=== PATIENT | male | born 1975 | race Hispanic/Latino ===

== ENCOUNTER 2017-01-05 23:50 | Emergency (ER) | payer MEDICAID ==
[2017-01-05 23:50] VITALS: BMI 33.0
--- NOTE | 2017-01-06 00:15 | ED PDOC ---
Arrival/HPI - General Historian: Patient - History of Present Illness Time/Duration: Other (today) Symptom Onset: Gradual Symptom Course: Worsening <Rossy Stephenson - Last Filed: 01/06/17 01:30> <Edwar Jeffries - Last Filed: 01/06/17 05:59> - General Chief Complaint: Psychiatric Evaluation Time Seen by Provider: 01/05/17 23:51 - History of Present Illness Narrative History of Present Illness (Text): 01/06/17 00:09 41yr old male with hx of bipolar, copd, asthma presents today hearing voices with SI. pt states he will take pills to hurt himself. denies cp or sob. no abdominal pain. no dizziness or weakness. c/o 1 week hx of rash to lateral chest bilaterally. c/o pruritis. no fever/chills. denies drug use. no other complaints. (Rossy Stephenson) Past Medical History - Provider Review Nursing Documentation Reviewed: Yes - Travel History Have you recently traveled outside [place] w/in the past 3 mons?: No - Infectious Disease Hx of Infectious Diseases: None - Past Medical History Past Medical History: No Previous - Cardiac Hx Hypertension: Yes - Pulmonary Hx Asthma: Yes Hx Chronic Obstructive Pulmonary Disease (COPD): Yes Hx Tuberculosis: No - Neurological Hx Neurological Disorder: No HX Cerebrovascular Accident: No - HEENT Hx HEENT Disorder: Yes Other/Comment: wears glasses for blurring of vision - Renal Hx Renal Disorder: No - Endocrine/Metabolic Hx Endocrine Disorders: No - Hematological/Oncological Hx Blood Disorders: No Hx Cancer: No - Integumentary Hx Dermatological Disorder: Yes Other/Comment: I&D to axillary cysts. Lipoma - Musculoskeletal/Rheumatological Hx Arthritis: Yes - Gastrointestinal Hx Gastrointestinal Disorders: No - Genitourinary/Gynecological Hx Genitourinary Disorders: No Hx Sexually Transmitted Diseases: No - Psychiatric Hx Anxiety: Yes Hx Bipolar Disorder: Yes Hx Depression: Yes Hx Schizophrenia: Yes Hx Substance Use: No - Past Surgical History Past Surgical History: No Previous - Surgical History Other/Comment: had boils removed from his under arms 2010. local anesthesia - Anesthesia Hx Anesthesia: No - Suicidal Assessment Feels Threatened In Home Enviroment: No <Rossy Stephenson - Last Filed: 01/06/17 01:30> Family/Social History - Physician Review Nursing Documentation Reviewed: Yes Family/Social History: Unknown Family HX Smoking Status: Heavy Smoker > 10 Cigarettes Daily Hx Alcohol Use: No Hx Substance Use: No Substance used: marijuana Hx Substance Use Treatment: No <Rossy Stephenson - Last Filed: 01/06/17 01:30> Allergies/Home Meds <SachinRossy T - Last Filed: 01/06/17 01:30> <Edwar Jeffries - Last Filed: 01/06/17 05:59> Allergies/Adverse Reactions: Allergies shellfish derived Allergy (Verified 01/06/17 00:01) RASH Home Medications: Home Meds Medication Instructions Recorded Confirmed traZODone [trazodone Hydrochloride] 100 mg PO DAILY 12/30/16 01/06/17 Benztropine [Benztropine Mesylate] 2 mg PO DAILY 01/06/17 01/06/17 Escitalopram [Lexapro] 5 mg PO CONT 01/06/17 01/06/17 Gabapentin [Neurontin] 300 mg PO DAILY 01/06/17 01/06/17 LORazepam [Ativan] 2 mg PO PRN PRN 01/06/17 01/06/17 Quetiapine Fumarate [Seroquel] 300 mg PO HS 01/06/17 01/06/17 Review of Systems - Review of Systems Constitutional: absent: Fatigue, Fevers Respiratory: absent: SOB, Cough Cardiovascular: absent: Chest Pain, Palpitations Gastrointestinal: absent: Abdominal Pain, Nausea, Vomiting Genitourinary Male: absent: Dysuria Musculoskeletal: absent: Arthralgias Skin: Rash, Pruritis Neurological: absent: Headache, Dizziness Psychiatric: Depression, Suicidal Ideation. absent: Anxiety <Rossy Stephenson - Last Filed: 01/06/17 01:30> Physical Exam Vital Signs Reviewed: Yes Temperature: Afebrile Blood Pressure: Normal Pulse: Regular Respiratory Rate: Normal Appearance: Positive for: Well-Appearing, Non-Toxic, Comfortable Pain Distress: None Mental Status: Positive for: Alert and Oriented X 3 - Systems Exam Head: Present: Atraumatic Neck: Present: Normal Range of Motion Respiratory/Chest: Present: Clear to Auscultation, Good Air Exchange. No: Respiratory Distress, Accessory Muscle Use Cardiovascular: Present: Regular Rate and Rhythm, Normal S1, S2. No: Murmurs Abdomen: No: Tenderness, Distention, Rebound, Guarding Back: Present: Normal Inspection. No: Midline Tenderness, Paraspinal Tenderness Upper Extremity: Present: Normal ROM Lower Extremity: Present: Normal ROM Neurological: Present: GCS=15, Speech Normal Skin: Present: Warm, Dry, Rashes (multiple pinpoint erythematous papules noted to lateral chest wall bilaterally; no surrounding erythema; ), Normal Color Psychiatric: Present: Alert, Oriented x 3, Depressed Mood, Suicidal Ideation <Rossy Stephenson - Last Filed: 01/06/17 01:30> Vital Signs Temp Pulse Resp BP Pulse Ox 01/06/17 05:33 97.6 F 86 18 115/60 95 01/06/17 01:30 90 18 100 01/06/17 00:14 98.5 F 119 H 20 130/73 97 Medical Decision Making <Rossy Stephenson - Last Filed: 01/06/17 01:30> <Edwar Jeffries - Last Filed: 01/06/17 05:59> ED Course and Treatment: 01/06/17 00:26 Patient is nontoxic well-appearing in no distress vital signs are stable. CBC wnl CMP wnl Tylenol pending Salicylate pending Alcohol level pending cxr; wnl ekg; NSr at 94 b/m no st elevations, normal intervals, no st elevations. Urine drug screen: pending UA:wnl case signed out to dr. jeffries; pending labs/UDS and PES evaluation. (Rossy Stephenson) 01/06/17 02:28 Pt seen by PES screener Cristina, states she will re-evaluate pt in the morning when he is sober. cleared by pes for dc 01/06/17 05:59 (Edwar Jeffries) - Lab Interpretations Lab Results: 01/06/17 00:40 01/06/17 00:40 Lab Results 01/06/17 01:15: Urine Opiates Screen Negative, Urine Methadone Screen Negative, Ur Barbiturates Screen Negative, Ur Phencyclidine Scrn Negative, Ur Amphetamines Screen Negative, U Benzodiazepines Scrn Negative, U Oth Cocaine Metabols Negative, U Cannabinoids Screen Negative 01/06/17 01:15: Urine Color Yellow, Urine Appearance Clear, Urine pH 6.0, Ur Specific [place] 1.025, Urine Protein Negative, Urine Glucose (UA) Negative, Urine Ketones Negative, Urine Blood Negative, Urine Nitrate Negative, Urine Bilirubin Negative, Urine Urobilinogen 0.2, Ur Leukocyte Esterase Negative 01/06/17 00:40: Alcohol, Quantitative 185 H 01/06/17 00:40: Salicylates < 1 L, Acetaminophen < 10.0 L 01/06/17 00:40: Sodium 145, Potassium 3.0 L, Chloride 107, Carbon Dioxide 25, Anion Gap 16, BUN 12, Creatinine 0.8, Est GFR ( Amer) > 60, Est GFR (Non- Af Amer) > 60, Random Glucose 122 H, Calcium 8.8, Total Bilirubin 0.6, AST 23, ALT 42, Alkaline Phosphatase 45, Total Protein 7.1, Albumin 4.4, Globulin 2.7, Albumin/Globulin Ratio 1.6 01/06/17 00:40: WBC 9.1, RBC 4.68, Hgb 14.8, Hct 42.9, MCV 91.7, MCH 31.6, MCHC 34.5, RDW 13.9, Plt Count 264, MPV 9.0, Gran % 49.6 L, Lymph % (Auto) 38.3 H, [place] % (Auto) 7.4 H, Eos % (Auto) 4.0, Baso % (Auto) 0.7, Gran # 4.52, Lymph # 3.5 H, [place] # 0.7 H, Eos # 0.4, Baso # 0.06 - RAD Interpretation Radiology Orders: 01/06/17 00:07 CHEST PORTABLE [RAD] Stat - Medication Orders Current Medication Orders: Discontinued Medications Potassium Chloride (K-Dur 20 Meq Er Tab) 40 meq PO STAT STA Stop: 01/06/17 01:39 Last Admin: 01/06/17 01:54 Dose: 40 meq - PA / GUSSET STITCHER / Resident Statement / has reviewed & agrees with the documentation as recorded. / has examined the patient and agrees with the treatment plan. <Edwar Jeffries - Last Filed: 01/06/17 05:59> Disposition/Present on Arrival - Present on Arrival Any Indicators Present on Arrival: No History of DVT/PE: No History of Uncontrolled Diabetes: No Urinary Catheter: No History of Decub. Ulcer: No History Surgical Site Infection Following: None <Rossy Stephenson - Last Filed: 01/06/17 01:30> - Present on Arrival Any Indicators Present on Arrival: No - Disposition Have Diagnosis and Disposition been Completed?: Yes Disposition Time: 07:00 <Edwar Jeffries - Last Filed: 01/06/17 05:59> - Disposition Diagnosis: Bipolar 1 disorder Disposition: HOME/ ROUTINE Patient Problems: Current Active Problems Problem Status Onset Bipolar 1 disorder Acute Condition: GOOD Prescriptions: Gabapentin 600 mg PO TID 14 Days #42 tablet Escitalopram [Lexapro] 10 mg PO DAILY #14 tab Quetiapine Fumarate [Seroquel] 100 mg PO BID 14 Days #28 tablet QUEtiapine [SEROquel] 300 mg PO HS #14 tab Forms: [employer] ([place])
[2017-01-06 00:51] LABS: BASO # 0.06 K/mm3 (0.0-2.0); BASO % 0.7 % (0.0-3.0); EOS # 0.4 (0.0-0.7); GRAN # 4.52 (1.4-6.5); GRAN % 49.6 % (50.0-68.0); HEMATOCRIT 42.9 % (42.0-52.0); LYMPH # 3.5 (1.2-3.4); LYMPH % 38.3 % (22.0-35.0); MEAN CELL VOLUME 91.7 fl (80.0-105.0); MEAN CORPUSCULAR HEMOGLOBIN 31.6 pg (25.0-35.0); MEAN CORPUSCULAR HGB CONC 34.5 g/dl (31.0-37.0); MONO # 0.7 (0.1-0.6); MONO % 7.4 % (1.0-6.0); RED CELL DISTRIBUTION WIDTH 13.9 % (11.5-14.5); WHITE BLOOD COUNT 9.1 10^3/ul (4.5-11.0)
[2017-01-06 01:04] LABS: ALB/GLOB RATIO 1.6 (1.1-1.8); ALKALINE PHOSPHATASE 45 U/L (38-126); ALT/SGPT 42 U/L (7-56); AST/SGOT 23 U/L (17-59); BILIRUBIN,TOTAL 0.6 mg/dL (0.2-1.3); BLOOD UREA NITROGEN 12 mg/dL (7-21); CALCIUM 8.8 mg/dL (8.4-10.5); CARBON DIOXIDE 25 mmol/L (21-33); CHLORIDE 107 mmol/L (95-110); GFR AFRICAN-AMERICAN > 60; GLUCOSE,RANDOM 122 mg/dL (70-110); SODIUM 145 mmol/L (132-148); TOTAL PROTEIN 7.1 g/dL (5.8-8.3)
[2017-01-06 01:21] LABS: URINE BILIRUBIN NEGATIVE (NEGATIVE); URINE BLOOD NEGATIVE (NEGATIVE); URINE COLOR YELLOW (YELLOW); URINE GLUCOSE (UA) NEGATIVE (NEGATIVE); URINE KETONE NEGATIVE (NEGATIVE); URINE LEUKOCYTE ESTERASE NEGATIVE Leu/uL (NEGATIVE); URINE PROTEIN NEGATIVE mg/dL (<30 mg/dL); URINE UROBILINOGEN 0.2 E.U./dL (<1 E.U./dL)
[2017-01-06 01:22] LABS: URINE APPEARANCE CLEAR (CLEAR)
[2017-01-06 01:31] VITALS: RESP 18
[2017-01-06] MEDS ORDERED: Potassium Chloride 20 mEq ER Tab PO STA (01:38)
[2017-01-06 05:37] VITALS: BP 115/60; PULSE 86; TEMP 97.6; O2SAT 95
--- NOTE | 2017-01-06 08:48 | RAD ---
HISTORY: PES eval COMPARISON: No prior. FINDINGS: LUNGS: No active pulmonary disease. PLEURA: No significant pleural effusion identified, no pneumothorax apparent. CARDIOVASCULAR: Normal. OSSEOUS STRUCTURES: No significant abnormalities. VISUALIZED UPPER ABDOMEN: Normal. OTHER FINDINGS: None. IMPRESSION: No active disease.
--- NOTE | 2017-01-06 09:16 | CARD ---
APPROVED REPORT EKG Measurement Heart [id number] [place] [id number] <Conclusion> Normal sinus rhythm Normal ECG
== END 2017-01-06 05:55 | disposition home or self-care (01) ==
LOC: ED 23:50
DX: F31.9 Bipolar disorder, unspecified (principal); F17.210 Nicotine dependence, cigarettes, uncomplicated; J44.9 Chronic obstructive pulmonary disease, unspecified; I10 Essential (primary) hypertension

== ENCOUNTER 2017-05-02 15:06 | Emergency (ER) | payer MEDICAID ==
[2017-05-02 15:07] VITALS: BMI 33.0
--- NOTE | 2017-05-02 16:21 | RAD ---
HISTORY: pes COMPARISON: Thin made with chest radiograph 01/06/2017. FINDINGS: LUNGS: No active pulmonary disease. PLEURA: No significant pleural effusion identified, no pneumothorax apparent. CARDIOVASCULAR: Normal. OSSEOUS STRUCTURES: No significant abnormalities. VISUALIZED UPPER ABDOMEN: Normal. OTHER FINDINGS: None. IMPRESSION: No active disease.
[2017-05-02 16:43] VITALS: RESP 18
[2017-05-02 16:49] LABS: URINE BILIRUBIN NEGATIVE (NEGATIVE); URINE BLOOD NEGATIVE (NEGATIVE); URINE GLUCOSE (UA) NEGATIVE (NEGATIVE); URINE LEUKOCYTE ESTERASE NEGATIVE Leu/uL (NEGATIVE); URINE NITRATE NEGATIVE (NEGATIVE); URINE PROTEIN NEGATIVE mg/dL (<30 mg/dL); URINE UROBILINOGEN 0.2 E.U./dL (<1 E.U./dL)
[2017-05-02 16:52] LABS: URINE APPEARANCE CLEAR (CLEAR); URINE COLOR YELLOW (YELLOW)
[2017-05-02 16:57] LABS: ALB/GLOB RATIO 1.5 (1.1-1.8); ALBUMIN 4.7 g/dL (3.0-4.8); ALT/SGPT 39 U/L (7-56); AST/SGOT 35 U/L (17-59); BLOOD UREA NITROGEN 14 mg/dL (7-21); CALCIUM 9.9 mg/dL (8.4-10.5); GFR AFRICAN-AMERICAN > 60; GFR NON-AFRICAN AMERICAN > 60
[2017-05-02 16:59] LABS: ACETAMINOPHEN < 10.0 ug/ml (10.0-20.0); SALICYLATE < 1 mg/dL (2.0-20.0)
[2017-05-02 17:00] LABS: BASO # 0.08 K/mm3 (0.0-2.0); BASO % 0.7 % (0.0-3.0); EOS # 0.3 (0.0-0.7); EOS % 2.8 % (1.5-5.0); GRAN # 6.85 (1.4-6.5); GRAN % 62.7 % (50.0-68.0); HEMOGLOBIN 15.7 g/dL (14.0-18.0); LYMPH # 2.9 (1.2-3.4); LYMPH % 26.7 % (22.0-35.0); MEAN CELL VOLUME 91.5 fl (80.0-105.0); MEAN CORPUSCULAR HEMOGLOBIN 31.6 pg (25.0-35.0); MEAN CORPUSCULAR HGB CONC 34.5 g/dl (31.0-37.0); MEAN PLATELET VOLUME 9.6 fl (7.0-11.0); MONO # 0.8 (0.1-0.6); MONO % 7.1 % (1.0-6.0); RBC 4.97 10^6/uL (3.5-6.1); RED CELL DISTRIBUTION WIDTH 13.1 % (11.5-14.5); WHITE BLOOD COUNT 10.9 10^3/ul (4.5-11.0)
[2017-05-02 17:08] LABS: BARBITURATES, UR NEGATIVE (NEGATIVE); BENZODIAZEPINES, UR NEGATIVE (NEGATIVE); OPIATES, UR NEGATIVE (NEGATIVE); PHENCYCLIDINE, UR NEGATIVE (NEGATIVE)
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
[2017-05-03 01:43] VITALS: O2SAT 97
[2017-05-03 03:51] VITALS: BP 130/85; PULSE 86; TEMP 97.8
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
--- NOTE | 2017-05-03 09:58 | CARD ---
APPROVED REPORT EKG Measurement Heart [id number] [place] [id number] <Conclusion> Normal sinus rhythm Mild NSSTW changes No change
== END 2017-05-03 03:50 | disposition short-term general hospital (02) ==
LOC: ED 15:06
DX: R45.851 Suicidal ideations (principal); F32.9 Major depressive disorder, single episode, unspecified; Z87.891 Personal history of nicotine dependence

== ENCOUNTER 2017-08-11 19:02 | Inpatient (IN) | payer MEDICAID, OTHER ==
[2017-08-11 19:03] VITALS: BMI 33.0
--- NOTE | 2017-08-11 19:44 | ED PDOC ---
Arrival/HPI <Jaguar Rick - Last Filed: 08/12/17 05:28> - General Historian: Patient - History of Present Illness Time/Duration: Prior to Arrival Symptom Onset: Gradual Symptom Course: Worsening Quality: Aching Severity Level: 8 Activities at Onset: Rest <Cuong Bryant - Last Filed: 08/12/17 05:48> - General Chief Complaint: Psychiatric Evaluation Time Seen by Provider: 08/11/17 19:15 - History of Present Illness Narrative History of Present Illness (Text): 08/11/17 19:43 Patient is a 42 M with a history of COPD, depression, Bipolar disorder, anxiety , and pancreatitis who presents with complaints of depression associated with suicidal ideation as well as abdominal pain described as sharp, rated a 8/10, which is constant and exacerbated with movement which began this morning. Patient also endorsed 3 episodes of vomiting which occurred this morning with the abdominal pain. Admits to consuming 1-2 pints of vodka today. Patient denies current nausea, vomiting, diarrhea, shortness of breath, chest pain, headaches, dizziness, fevers, chills, recent travel, cough. PMD: Denies Surgical history: axillary cyst removal Family history: Hypertension Allergies: shellfish Social history: Currently homeless, gets alcohol from friends does not pay for it, drinks 1-2 pints of vodka a day sometimes more (Cuong Bryant) Past Medical History - Provider Review Nursing Documentation Reviewed: Yes - Infectious Disease Hx of Infectious Diseases: None - Tetanus Immunization Tetanus Immunization: Unknown - Past Medical History Past Medical History: No Previous - Cardiac Hx Cardiac Disorders: No Hx Hypertension: No - Pulmonary Hx Respiratory Disorders: Yes Hx Asthma: Yes Hx Chronic Obstructive Pulmonary Disease (COPD): Yes - Neurological HX Cerebrovascular Accident: No Hx Seizures: No - HEENT Hx HEENT Disorder: Yes Other/Comment: wears glasses - Renal Hx Renal Disorder: No - Endocrine/Metabolic Hx Endocrine Disorders: No - Hematological/Oncological Hx Blood Disorders: No Hx Cancer: No - Integumentary Hx Dermatological Disorder: Yes Other/Comment: I&D to axillary cysts. Lipoma - Musculoskeletal/Rheumatological Hx Musculoskeletal Disorders: Yes Hx Arthritis: Yes - Gastrointestinal Hx Gastrointestinal Disorders: Yes Hx Pancreatitis: Yes - Genitourinary/Gynecological Hx Genitourinary Disorders: No - Psychiatric Hx Psychophysiologic Disorder: Yes Hx Anxiety: Yes Hx Bipolar Disorder: Yes Hx Depression: Yes Hx Schizophrenia: Yes Hx Substance Use: Yes - Past Surgical History Past Surgical History: No Previous - Surgical History Other/Comment: had boils removed from his under arms 2010. local anesthesia - Anesthesia Hx Anesthesia: No Hx Anesthesia Reactions: No Hx Malignant Hyperthermia: No - Suicidal Assessment Feels Threatened In Home Enviroment: No <Cuong Bryant - Last Filed: 08/12/17 05:48> Family/Social History - Physician Review Nursing Documentation Reviewed: Yes Family/Social History: Hypertension Smoking Status: Light Smoker < 10 Cigarettes Daily Hx Alcohol Use: Yes Hx Substance Use: Yes Substance used: marijuana Hx Substance Use Treatment: No <Cuong Bryant - Last Filed: 08/12/17 05:48> Allergies/Home Meds <Jaguar Rick - Last Filed: 08/12/17 05:28> <Cuong Bryant - Last Filed: 08/12/17 05:48> Allergies/Adverse Reactions: Allergies shellfish derived Allergy (Verified 08/11/17 19:19) ANAPHYLAXIS Home Medications: Home Meds Medication Instructions Recorded Confirmed No Known Home Med 08/11/17 08/11/17 Review of Systems - Physician Review All systems were reviewed & negative as marked: Yes - Review of Systems Constitutional: Normal. absent: Fatigue, Fevers Eyes: absent: Vision Changes Respiratory: Normal. absent: SOB, Cough Cardiovascular: Normal. absent: Chest Pain, Palpitations Gastrointestinal: Abdominal Pain. absent: Nausea, Vomiting Genitourinary Male: Normal Musculoskeletal: Normal Neurological: Normal. absent: Headache, Dizziness Endocrine: Normal Hemo/Lymphatic: Normal Psychiatric: Anxiety, Depression, Suicidal Ideation <Cuong Bryant - Last Filed: 08/12/17 05:48> Physical Exam Vital Signs Reviewed: Yes Temperature: Afebrile Blood Pressure: Normal Pulse: Regular Respiratory Rate: Normal Appearance: Positive for: Well-Appearing, Non-Toxic, Comfortable Pain Distress: None Mental Status: Positive for: Alert and Oriented X 3 - Systems Exam Head: Present: Atraumatic, Normocephalic Pupils: Present: PERRL Extroacular Muscles: Present: EOMI Conjunctiva: Present: Normal Mouth: Present: Moist Mucous Membranes Respiratory/Chest: Present: Clear to Auscultation. No: Wheezes, Rhonchi Cardiovascular: Present: Regular Rate and Rhythm, Tachycardic Abdomen: Present: Tenderness. No: Normal Bowel Sounds (decreasd) Back: Present: Other (two lipo mas on right scapular region and right mid thoracic ) Lower Extremity: Present: Normal Inspection, Other (lipoma on right thigh on dorsal surface) Neurological: Present: GCS=15, CN II-XII Intact, Speech Normal Skin: Present: Warm, Normal Color Psychiatric: Present: Alert, Oriented x 3, Normal Insight, Normal Concentration <Cuong Bryant - Last Filed: 08/12/17 05:48> Vital Signs Temp Pulse Resp BP Pulse Ox 08/12/17 05:43 80 17 102/66 97 08/12/17 04:15 90 23 104/71 96 08/12/17 00:55 68 16 125/69 100 08/11/17 22:00 98.2 F 98 H 17 110/66 97 Medical Decision Making <Jaguar Rick - Last Filed: 08/12/17 05:28> Re-evaluation Time: 20:50 (anxious; librium gi stefan) - Lab Interpretations I have reviewed the lab results: Yes Interpretation: All labs normal - 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 Patient was seen and evaluated with resident. Came up with plan and treatment together. 42 year old male presents complaining of depression associated with suicidal ideation and abdominal pain that began this morning. Plan: -- Labs -- EKG -- Chest X-Ray -- Librium, IV Fluids -- Urinalysis (Jaguar Rick) 08/11/17 20:06 PES contacted and evaluated patient Alcohol level ordered: need level to be <150 before patient can give consent to being admitted CBC, CMP, Lipase, Urine drug tox, CXR, TSH, NS@125, CIWA Chest X-ray: no active disease 08/11/17 20:50 Patient states he is anxious; librium given Alcohol level 130 08/12/17 03:33 [facility] has no more beds for alcohol detox, waiting to hear from [facility] for beds. 08/12/17 05:47 Patient will be admitted to [facility] (Cuong Bryant) - Lab Interpretations Lab Results: 08/11/17 20:05 08/11/17 20:05 Lab Results 08/11/17 20:25: Urine Opiates Screen Negative, Urine Methadone Screen Negative, Ur Barbiturates Screen Negative, Ur Phencyclidine Scrn Negative, Ur Amphetamines Screen Negative, U Benzodiazepines Scrn Positive, U Oth Cocaine Metabols Negative, U Cannabinoids Screen Negative 08/11/17 20:05: TSH 3rd Generation 1.19, Alcohol, Quantitative 130 H 08/11/17 20:05: Sodium 148, Potassium 3.7, Chloride 103, Carbon Dioxide 25, Anion Gap 24 H, BUN 15, Creatinine 0.8, Est GFR ( Amer) > 60, Est GFR ( Non-Af Amer) > 60, Random Glucose 91, Calcium 9.8, Total Bilirubin 0.5, AST 31, ALT 43, Alkaline Phosphatase 43, Total Protein 8.1, Albumin 4.8, Globulin 3.2, Albumin/Globulin Ratio 1.5, Lipase 70 08/11/17 20:05: WBC 9.4, RBC 5.15, Hgb 16.3, Hct 46.6, MCV 90.5, MCH 31.7, MCHC 35.0, RDW 13.4, Plt Count 264, MPV 9.5, Gran % 63.8, Lymph % (Auto) 26.8, [place] % (Auto) 5.5, Eos % (Auto) 2.8, Baso % (Auto) 1.1, Gran # 6.00, Lymph # (Auto) 2.5, [place] # (Auto) 0.5, Eos # (Auto) 0.3, Baso # (Auto) 0.10 - RAD Interpretation Radiology Orders: 08/11/17 19:39 CHEST PORTABLE [RAD] Stat - Medication Orders Current Medication Orders: Sodium Chloride (Sodium Chloride 0.9%) 1,000 mls @ 125 mls/hr IV .Q8H OMAR Last Admin: 08/12/17 04:37 Dose: 125 mls/hr eMAR Start Stop Document 08/12/17 04:37 CNR (Rec: 08/12/17 04:37 [id number] Intravenous Solution Start Date 08/12/17 Start Time 04:37 Discontinued Medications Chlordiazepoxide (Librium) 50 mg PO STAT STA PRN Reason: Protocol Stop: 08/11/17 20:37 Last Admin: 08/11/17 20:44 Dose: 50 mg Sodium Chloride (Sodium Chloride 0.9%) 1,000 mls @ 100 mls/hr IV .Q10H OMAR - Scribe Statement The provider has reviewed the documentation as recorded by the Scribe <Jaguar Rick - Last Filed: 08/12/17 05:28> <Cuong Bryant - Last Filed: 08/12/17 05:48> - Scribe Statement Richard Loyola Provider Scribe Attestation: All medical record entries made by the Scribe were at my direction and personally dictated by me. I have reviewed the chart and agree that the record accurately reflects my personal performance of the history, physical exam, medical decision making, and the department course for this patient. I have also personally directed, reviewed, and agree with the discharge instructions and disposition. (Jaguar Rick) Disposition/Present on Arrival <Jaguar Rick - Last Filed: 08/12/17 05:28> - Present on Arrival Any Indicators Present on Arrival: No History of DVT/PE: No History of Uncontrolled Diabetes: No Urinary Catheter: No History of Decub. Ulcer: No History Surgical Site Infection Following: None - Disposition Have Diagnosis and Disposition been Completed?: Yes Disposition Time: 05:32 Patient Plan: Admission <Cuong Bryant - Last Filed: 08/12/17 05:48> - Disposition Diagnosis: Depression, Suicidal ideations Disposition: HOSPITALIZED Patient Problems: Current Active Problems Problem Status Onset Depression Acute Suicidal ideations Acute Condition: GUARDED Referrals: PCP,NO [Primary Care Provider] - Follow up with primary Forms: V-Key (Portuguese)
[2017-08-11] MEDS ORDERED: Sodium Chloride 0.9% 1,000 ML IV SCH (19:45)
[2017-08-11] MEDS: Sodium Chloride 0.9% 1,000 ML IV SCH (20:15)
[2017-08-11 20:31] LABS: ALB/GLOB RATIO 1.5 (1.1-1.8); ALBUMIN 4.8 g/dL (3.0-4.8); ALT/SGPT 43 U/L (7-56); AST/SGOT 31 U/L (17-59); BASO # 0.1 K/mm3 (0.0-2.0); BASO % 1.1 % (0.0-3.0); BLOOD UREA NITROGEN 15 mg/dL (7-21); CALCIUM 9.8 mg/dL (8.4-10.5); EOS # 0.3 (0.0-0.7); EOS % 2.8 % (1.5-5.0); GFR AFRICAN-AMERICAN > 60; GFR NON-AFRICAN AMERICAN > 60; GRAN % 63.8 % (50.0-68.0); HEMOGLOBIN 16.3 g/dL (14.0-18.0); LIPASE 70 U/L (23-300); LYMPH # 2.5 (1.2-3.4); LYMPH % 26.8 % (22.0-35.0); MEAN CELL VOLUME 90.5 fl (80.0-105.0); MEAN CORPUSCULAR HEMOGLOBIN 31.7 pg (25.0-35.0); MEAN PLATELET VOLUME 9.5 fl (7.0-11.0); MONO # 0.5 (0.1-0.6); MONO % 5.5 % (1.0-6.0); RBC 5.15 10^6/uL (3.5-6.1); RED CELL DISTRIBUTION WIDTH 13.4 % (11.5-14.5); WHITE BLOOD COUNT 9.4 10^3/ul (4.5-11.0)
[2017-08-11 20:56] LABS: BARBITURATES, UR NEGATIVE (NEGATIVE); BENZODIAZEPINES, UR POSITIVE (NEGATIVE); OPIATES, UR NEGATIVE (NEGATIVE); PHENCYCLIDINE, UR NEGATIVE (NEGATIVE)
[2017-08-12] MEDS: Sodium Chloride 0.9% 1,000 ML IV SCH (04:37)
[2017-08-12 05:44] VITALS: O2SAT 97
[2017-08-12 05:46] LABS: URINE BILIRUBIN NEGATIVE (NEGATIVE); URINE BLOOD NEGATIVE (NEGATIVE); URINE GLUCOSE (UA) NEGATIVE (NEGATIVE); URINE LEUKOCYTE ESTERASE NEGATIVE Leu/uL (NEGATIVE); URINE PROTEIN NEGATIVE mg/dL (<30 mg/dL); URINE UROBILINOGEN 0.2 E.U./dL (<1 E.U./dL)
[2017-08-12 05:51] LABS: URINE APPEARANCE CLEAR (CLEAR); URINE COLOR YELLOW (YELLOW)
[2017-08-12] MEDS ORDERED: Magnesium Hydroxide Susp 30 ml UD PO PRN (08:07)
[2017-08-12] MEDS ORDERED: Alum-Mag Hydrox-Simethicone Susp (30 mL) PO PRN (08:07)
--- NOTE | 2017-08-12 08:28 | RAD ---
HISTORY: medical clearance COMPARISON: 05/02/2017 FINDINGS: LUNGS: No active pulmonary disease. PLEURA: No significant pleural effusion identified, no pneumothorax apparent. CARDIOVASCULAR: Normal. OSSEOUS STRUCTURES: No significant abnormalities. VISUALIZED UPPER ABDOMEN: Normal. OTHER FINDINGS: None. IMPRESSION: No active disease.
[2017-08-12 09:17] LABS: GLUCOSE,FASTING 81 mg/dL (65-110); HDL CHOLESTEROL 55 mg/dL (29-60)
[2017-08-12 09:28] LABS: LDL CHOLESTEROL 79 mg/dL (0-129)
--- NOTE | 2017-08-12 12:25 | PCM.PSYCH ---
Initial Psychiatric Evaluation - Initial Psychiatric Evaluation Type of Admission: Voluntary Legal Status: Capacity (patient has capacity to sign consent for treatment) Chief Complaint (in patient's own words): "I was not able to afford medications, I relapsed on drinking" Patient's Reaction to Hospitalization: pt was admitted for evaluation of depression/hopelessness/passive wish to be , inability to function. History of Present Illness and Precipitating Events: Shortly pt is a 42 year old Male with reported h/o alcohol use disorder, previous psychiatric admission to [facility], pt was d/c on Aug 04 2017, pt denied h/o suicidal attempts in the past, pt brought himself to the hospital for evaluation of depression, feeling of hopelessness, pt was not able to afford medications after discharge from [facility], pt relapsed on alcohol, pt reported thoughts of harming self in the ED with the plan to jump in front of the traffic, pt was not able to contract for safety, pt requires high level of care and observation and stabilization in psych inpatient unit. pt was seen and evaluated in his room with the medical student, pt presented with poor personal hygiene, has NOEMI kauffman, BP wnl, pt reported that he feels very anxious and he is withdrawing from alcohol, pt's last drink was yesterday, pt reported drinking about 2pints of vodka daily. Pt reported that he had h/o hallucinations and withdrawal seizures in the past when he was withdrawing. pt was educated about medications, ativan was started scheduled and PRN, pt reported good response from ativan in the past. pt denied any other drug use, smokes about 6cigarettes a day, counseling provided, pt refused nicotine patch. pt reported since the time of discharge from the [facility] he was not able to afford medications which pt found to be helpful, pt said he relapsed on alcohol, as a result pt became depressed, hopeless, yesterday as per pt he started to have thoughts of jumping in front of the traffic, initially pt "I was scared to come to the hospital because I knew everyone would be mad at me", but decided to look for help in anyway. in ED pt reported to hear command type hallucinations, but not during the interview,pt does not appeared to be psychotic. no manic episodes in the past. tx goals: "I would consider to go to rehab, but it is not define yet". pt adamantly denied h/o abuse/physical/emotional/sexual. Past psych h/o: multiple psych admissions, denied suicidal attempts, 2detoxes, most recent was last year, longest sobriety 2months after the detox. stress: mother has stage 4cancer. Medical h/o: pt reported being healthy. Family h/o: denied mental illness in the family. d/c summary reviewed, pt was d/c from the [facility] with the following meds: Gabapentin [Neurontin] 300 mg PO TID #45 cap Mirtazapine [Remeron] 30 mg PO HS #14 tab Propranolol [Inderal] 20 mg PO TID #45 tab traZODone [Desyrel] 50 mg PO HS PRN #14 tab pt was willing to resume meds, pt said "it was helpful", pt was educated about naltrexone, pt wants to think about it. 08/11/17 20:05 08/11/17 20:05 Lab Results 08/12/17 09:00: TSH 3rd Generation 1.99 08/12/17 09:00: Fasting Glucose 81, Triglycerides 50, Cholesterol 156, LDL Cholesterol Direct 79, HDL Cholesterol 55 08/12/17 05:00: Urine Color Yellow, Urine Appearance Clear, Urine pH 6.0, Ur Specific [place] >= 1.030, Urine Protein Negative, Urine Glucose (UA) Negative, Urine Ketones Trace H, Urine Blood Negative, Urine Nitrate Negative, Urine Bilirubin Negative, Urine Urobilinogen 0.2, Ur Leukocyte Esterase Negative 08/11/17 20:25: Urine Opiates Screen Negative, Urine Methadone Screen Negative, Ur Barbiturates Screen Negative, Ur Phencyclidine Scrn Negative, Ur Amphetamines Screen Negative, U Benzodiazepines Scrn Positive, U Oth Cocaine Metabols Negative, U Cannabinoids Screen Negative 08/11/17 20:05: TSH 3rd Generation 1.19, Alcohol, Quantitative 130 H 08/11/17 20:05: Sodium 148, Potassium 3.7, Chloride 103, Carbon Dioxide 25, Anion Gap 24 H, BUN 15, Creatinine 0.8, Est GFR ( Amer) > 60, Est GFR ( Non-Af Amer) > 60, Random Glucose 91, Calcium 9.8, Total Bilirubin 0.5, AST 31, ALT 43, Alkaline Phosphatase 43, Total Protein 8.1, Albumin 4.8, Globulin 3.2, Albumin/Globulin Ratio 1.5, Lipase 70 08/11/17 20:05: WBC 9.4, RBC 5.15, Hgb 16.3, Hct 46.6, MCV 90.5, MCH 31.7, MCHC 35.0, RDW 13.4, Plt Count 264, MPV 9.5, Gran % 63.8, Lymph % (Auto) 26.8, Cloud % (Auto) 5.5, Eos % (Auto) 2.8, Baso % (Auto) 1.1, Gran # 6.00, Lymph # (Auto) 2.5, Cloud # (Auto) 0.5, Eos # (Auto) 0.3, Baso # (Auto) 0.10 Vital Signs Temp Pulse Resp BP Pulse Ox 08/12/17 07:05 97.7 F 86 20 127/90 08/12/17 05:43 80 17 102/66 97 08/12/17 04:15 90 23 104/71 96 08/12/17 00:55 68 16 125/69 100 08/11/17 22:00 98.2 F 98 H 17 110/66 97 Current Medications: Active Medications Generic Name Dose Route Start Last Admin Trade Name Freq PRN Reason Stop Dose Admin Acetaminophen 650 mg 08/12/17 08:07 Tylenol 325mg Tab PO Q6H PRN Pain, moderate (4-7) Al Hydrox/Mg Hydrox/Simethicone 30 ml 08/12/17 08:07 Maalox Plus 30 Ml PO DAILY PRN Indigestion / Heartburn Citalopram Hydrobromide 10 mg 08/12/17 08:15 08/12/17 08:19 Celexa PO 10 mg DAILY OMAR Administration Sodium Chloride 1,000 mls @ 125 mls/hr 08/11/17 19:45 08/12/17 04:37 Sodium Chloride 0.9% IV 125 mls/hr .Q8H OMAR Administration Lorazepam 2 mg 08/12/17 08:15 08/12/17 08:19 Ativan PO 2 mg Q6H OMAR Administration Protocol Magnesium Hydroxide 30 ml 08/12/17 08:07 Milk Of Magnesia PO DAILY PRN Constipation Past Psychiatric History - Past Psychiatric History Previous Treatment History: Inpatient Prior Professional Help: see HPI Prior Psychiatric Treatment: see HPI At what hospital: see HPI Duration: see HPI Nature of Treatment: see HPI Explanation of prior treatment: see HPI History of Abuse: see HPI History of ETOH/Drug Use: see HPI History of Family Illness: see HPI Pertinent Medical Hx (Current Medical&Sleep Prob, Allergies): Allergies Allergy/AdvReac Type Severity Reaction Status Date / Time shellfish derived Allergy ANAPHYLAXIS Verified 08/11/17 19:19 No Known Home Med 08/11/17 Review of Systems - Review of Systems Systems not reviewed;Unavailable: Acuity of Condition - EENT Eyes: As Per HPI Ears: As Per HPI Nose/Mouth/Throat: As Per HPI - Cardiovascular Cardiovascular: As Per HPI - Respiratory Respiratory: As Per HPI - Gastrointestinal Gastrointestinal: As Per HPI - Genitourinary Genitourinary: As Per HPI - Reproductive: Male Reproductive:Male: As Per HPI - Musculoskeletal Musculoskeletal: As Par HPI - Integumentary Integumentary: As Per HPI - Neurological Neurological: As Per HPI - Psychiatric Psychiatric: As Per HPI - Endocrine Endocrine: As Per HPI - Hematologic/Lymphatic Hematologic: As Per HPI Mental Status Examination - Personal Presentation Personal Presentation: Looks stated age - Affect Affect: Constricted, Flat - Motor Activity Motor Activity: Psychomotor Retardation - Reliability in Providing Information Reliability in Providing Information: Fair - Speech Speech: Organized - Mood Mood: Depressed, Anxious - Formal Thought Process Formal Thought Process: No Impairment - Cognitive Functions Orientation: Person, Place, Situation Sensorium: Drowsy Attention/Concentration: Easily distracted Estimate of Intelligence: Average Judgement: Intact, as evidence by: Insight regarding need for hospitalization - Risk Risk: Seizure, Withdrawal, Self-mutilation, Diminished functioning - Strength & Assets Inventory Strength & Assets Inventory: Cooperative, Other (good physical health, cooperative, ) - Limitations Limitations: Other (chronic alcohol use, homelessness, poor social support) DSM 5 DX - DSM 5 DSM 5 Diagnosis: r/o MDD r/o substance induced mood disorder (pt said when he was sober for two months "everything was perfect") alcohol use disorder alcohol withdrawals (under control) - Recommended/Plan of Treatment Treatment Recommendations and Plan of Treatment: Milieu/structure/supportive therapy Medical consult would be considered if needs SW consultation for discharge plan and social issues Med management multivitamins, folic acid, thiamine Celexa 10 mg daily for depression and anxiety Neurontin 300 mg 3 times a day for mood stabilization Ativan 2 mg scheduled and when necessary for alcohol withdrawals Remeron 5 mg at the nighttime for depression and insomnia monitor vital signs, seizure precaution Family involvement Follow up on labs Will monitor closely Pt was educated about risk/benefits and alternatives of medications, coping strategies (safety plan, suicide prevention), relapse prevention, importance of follow up with psychiatrist and therapist, stay away from drugs/alcohol/smoking Projected ELOS: 7days Prognosis: fair Discharge Plan and Discharge Criteria: Pt will be not depressed or manic, will be more hopeful, will be not psychotic or anxious, will be not having thoughts of harming self or others, will be tolerating medications well, will not have major side effects, will be able to function, will not pose threat to self or others. - Smoking Cessation Smoking Cessation Initiated: No Reason for not providing: pt refused
--- NOTE | 2017-08-12 13:25 | PCM.BM ---
<AbimbolaHarinder - Last Filed: 08/12/17 13:22> Treatment Plan Problems - Problems identified on initial assessmt FEEELINGS OF WORTHLESNESS Date Initiated: 08/12/17 Time Initiated: 13:23 Assessment reference: HP, NA Status: Active HOPELESSNESS/HELPLESSNESS Date Initiated: 08/12/17 (N) Time Initiated: 13:24 Assessment reference: HP, NA Status: Active SOCOAL ISOLATION Date Initiated: 08/12/17 Time Initiated: 13:24 Assessment reference: HP, NA Status: Active Treatment assets and liabiliti Patient Assests: adapts well, cooperative, self-reliant, ADL independent, physically healthy, negotiates basic needs, good past tx response, cognitively intact Patient Liabilities: financial problems, poor support system, substance abuse - Milieu Protocol Maintain good personal hygiene: daily Encourage regular showers, daily Remind patient to perform daily oral care, daily Assist patient to perform ADL's Maintain personal safety: daily Educate patient to report safety concerns to staff, daily Monitor environment for contraband/sharps Medication safety: Monitor for expected outcome, potential side effects: daily, Assess barriers to learning: daily, Assess readiness for medication education: daily Milieu Narrative: Milieu/structure/supportive therapy Medical consult would be considered if needs consultation for discharge plan and social issues Med management multivitamins, folic acid, thiamine Celexa 10 mg daily for depression and anxiety Neurontin 300 mg 3 times a day for mood stabilization Ativan 2 mg scheduled and when necessary for alcohol withdrawals Remeron 5 mg at the nighttime for depression and insomnia monitor vital signs, seizure precaution Family involvement Follow up on labs Will monitor closely Pt was educated about risk/benefits and alternatives of medications, coping strategies (safety plan, suicide prevention), relapse prevention, importance of follow up with psychiatrist and therapist, stay away from drugs/alcohol/smoking Discharge/Continuing Care - Education Needs Education Needs: Patient Medication, Patient Diagnosis/Disease Process, Patient Coping Skills, Patient Community resources, Patient Activities of Daily Living, Patient Health Practices/Safety, Patient Personal Hygiene/Grooming, Patient Aftercare Safety Plan - Discharge Discharge Criteria: Free of Suicidal thoughts, Free of Homicidal thoughts - Treatment Team Participation Patient/Family/SO Statement: Milieu/structure/supportive therapy Medical consult would be considered if needs consultation for discharge plan and social issues Med management multivitamins, folic acid, thiamine Celexa 10 mg daily for depression and anxiety Neurontin 300 mg 3 times a day for mood stabilization Ativan 2 mg scheduled and when necessary for alcohol withdrawals Remeron 5 mg at the nighttime for depression and insomnia monitor vital signs, seizure precaution Family involvement Follow up on labs Will monitor closely Pt was educated about risk/benefits and alternatives of medications, coping strategies (safety plan, suicide prevention), relapse prevention, importance of follow up with psychiatrist and therapist, stay away from drugs/alcohol/smoking <Berenice Doll - Last Filed: 08/13/17 13:30> Family Contact Family involvement: No known Family/SO <Jaymie Fox - Last Filed: 08/13/17 15:24>
[2017-08-12] MEDS: Multivitamin With Minerals Tab PO SCH (14:08)
--- NOTE | 2017-08-12 23:49 | CARD ---
APPROVED REPORT EKG Measurement Heart [id number] <Conclusion> Sinus tachycardia Anterior infarct, age undetermined Abnormal ECG
[2017-08-13] MEDS: Multivitamin With Minerals Tab PO SCH (08:48)
--- NOTE | 2017-08-13 16:05 | PCM.PYCHPN ---
Psychiatric Progress Note - Psychiatric Progress Note Patient seen today, length of contact: 30min Patient Chief Complaint: "my plan is to be alcohol free" Problems Identified/Issues Discussed: Suicide/ homicide prevention, past psychiatric h/o, current psychiatric symptoms , medical problems, risk/benefits and alternatives of medications, medications compliance, coping strategies, substance abuse h/o, relapse prevention, importance of follow up with psychiatrist and therapist, discharge plan. Medical Problems: denied medical problems Diagnostic Results: 08/11/17 20:05 08/11/17 20:05 Lab Results 08/12/17 09:00: RPR Nonreactive 08/12/17 09:00: TSH 3rd Generation 1.99 08/12/17 09:00: Fasting Glucose 81, Triglycerides 50, Cholesterol 156, LDL Cholesterol Direct 79, HDL Cholesterol 55 08/12/17 05:00: Urine Color Yellow, Urine Appearance Clear, Urine pH 6.0, Ur Specific Mathews >= 1.030, Urine Protein Negative, Urine Glucose (UA) Negative, Urine Ketones Trace H, Urine Blood Negative, Urine Nitrate Negative, Urine Bilirubin Negative, Urine Urobilinogen 0.2, Ur Leukocyte Esterase Negative 08/11/17 20:25: Urine Opiates Screen Negative, Urine Methadone Screen Negative, Ur Barbiturates Screen Negative, Ur Phencyclidine Scrn Negative, Ur Amphetamines Screen Negative, U Benzodiazepines Scrn Positive, U Oth Cocaine Metabols Negative, U Cannabinoids Screen Negative 08/11/17 20:05: TSH 3rd Generation 1.19, Alcohol, Quantitative 130 H 08/11/17 20:05: Sodium 148, Potassium 3.7, Chloride 103, Carbon Dioxide 25, Anion Gap 24 H, BUN 15, Creatinine 0.8, Est GFR ( Amer) > 60, Est GFR ( Non-Af Amer) > 60, Random Glucose 91, Calcium 9.8, Total Bilirubin 0.5, AST 31, ALT 43, Alkaline Phosphatase 43, Total Protein 8.1, Albumin 4.8, Globulin 3.2, Albumin/Globulin Ratio 1.5, Lipase 70 08/11/17 20:05: WBC 9.4, RBC 5.15, Hgb 16.3, Hct 46.6, MCV 90.5, MCH 31.7, MCHC 35.0, RDW 13.4, Plt Count 264, MPV 9.5, Gran % 63.8, Lymph % (Auto) 26.8, [place] % (Auto) 5.5, Eos % (Auto) 2.8, Baso % (Auto) 1.1, Gran # 6.00, Lymph # (Auto) 2.5, [place] # (Auto) 0.5, Eos # (Auto) 0.3, Baso # (Auto) 0.10 Vital Signs Temp Pulse Resp BP Pulse Ox 08/13/17 07:05 97.4 F L 71 20 105/72 08/12/17 15:46 64 96/59 L 08/12/17 07:05 97.7 F 86 20 127/90 08/12/17 05:43 80 17 102/66 97 08/12/17 04:15 90 23 104/71 96 08/12/17 00:55 68 16 125/69 100 08/11/17 22:00 98.2 F 98 H 17 110/66 97 EKG was taken at ED, had some tachycardia, not now, also prolonged QTc will call for the medical consult pt is asymptomatic. DSM 5 Symptoms Update: Shortly pt is a 42 year old Male with reported h/o alcohol use disorder, previous psychiatric admission to [facility], pt was d/c on Aug 04 2017, pt denied h/o suicidal attempts in the past, pt brought himself to the hospital for evaluation of depression, feeling of hopelessness, pt was not able to afford medications after discharge from [facility], pt relapsed on alcohol, pt reported thoughts of harming self in the ED with the plan to jump in front of the traffic, pt was not able to contract for safety, pt requires high level of care and observation and stabilization in psych inpatient unit. pt was seen and evaluated at the treatment team meeting, hygiene improving, pt c /o insomnia, willing to increase dose of remeron. pt had fine UE tremor, but VS are stable. pt reported being "very depressed", but more hopeful "I hope to stay alcohol free", at the same time does not want to go to the Inpatient rehab. No psychotic symptoms. As per staff pt is more visible in the unit, started to go to the groups. pt tolerates meds well, no side effects observed or reported. AIMS 0, no EPS. Impression: DSM 5 Diagnosis: r/o MDD r/o substance induced mood disorder (pt said when he was sober for two months "everything was perfect") alcohol use disorder alcohol withdrawals (under control) Medication Change: Yes Medical Record Reviewed: Yes Consults ordered or reviewed: consult was called for abnormal EKG, pt is asymptomatic Mental Status Examination - Cognitive Function Orientation: Person, Place, Situation Memory: Intact Attention: Poor Concentration: Poor Association: WNL Fund of Knowledge: WNL - Mood Mood: Depressed, Anxious - Affect Affect: Constricted, Flat - Formal Thought Process Formal Thought Process: No Impairment - Suicidal Ideation Suicidal Ideation: No - Homicidal Ideation Homicidal Ideation: No Goal/Treatment Plan - Goal/Treatment Plan Need for Continued Stay: Remain at risks for inpatient hospitalization, Severe depression anxiety, Discharge may exacerbated symptoms, Severe functional impairment Progress Toward Problem(s) and Goals/Treatment Plan: Milieu/structure/supportive therapy Medical consult would be considered if needs SW consultation for discharge plan and social issues Med management multivitamins, folic acid, thiamine Celexa 10 mg daily for depression and anxiety Neurontin 300 mg 3 times a day for mood stabilization Ativan 2 mg scheduled and when necessary for alcohol withdrawals Remeron 30 mg at the nighttime for depression and insomnia naltrexone was discussed with pt monitor vital signs, seizure precaution Family involvement Follow up on labs Will monitor closely Pt was educated about risk/benefits and alternatives of medications, coping strategies (safety plan, suicide prevention), relapse prevention, importance of follow up with psychiatrist and therapist, stay away from drugs/alcohol/smoking Estimated Date of D/C: 08/18/17
[2017-08-14] MEDS: Multivitamin With Minerals Tab PO SCH (08:52)
--- NOTE | 2017-08-14 09:31 | PCM.PYCHPN ---
Psychiatric Progress Note - Psychiatric Progress Note Patient seen today, length of contact: 25 min Problems Identified/Issues Discussed: I reviewed assessment. Patient is a 42 year old Male with history of depression and alcohol use disorder, previous psychiatric admission to [facility], recent d/c on Aug 04 2017, no prior SA who brought himself to the hospital for evaluation of depression and SI to jump in front of traffic in context of alcohol relapse s/p discharge from [facility] a week ago. I reviewed recent notes and met with patient at bedside. He is alert and well- oriented to month, year and circumstances. Grooming is fair and patient doesn't appear to be in distress. Indicates that he is feeling better on the unit however he remains very depressed. Believes the medications are helping though he still had difficulty falling asleep last night. Affect is constricted. Thought process is coherent and patient can express his needs well. Patient denies any new side effects, discomfort or pain. Still complains of intermittent headache which he believes is secondary to his medication. Recent staff notes indicate that patient has been visible on the unit, attending groups and socializing at times. Appetite is good. There were no behavioral issues overnight. Diagnostic Results: r/o MDD r/o substance induced mood disorder (pt said when he was sober for two months "everything was perfect") alcohol use disorder alcohol withdrawals (under control) Medication Change: No Medical Record Reviewed: Yes Mental Status Examination - Cognitive Function Orientation: Person, Place, Situation Memory: Intact Attention: Poor Concentration: Poor Association: WNL Fund of Knowledge: WNL - Mood Mood: Depressed, Anxious - Affect Affect: Constricted, Flat - Formal Thought Process Formal Thought Process: No Impairment - Suicidal Ideation Suicidal Ideation: No - Homicidal Ideation Homicidal Ideation: No Goal/Treatment Plan - Goal/Treatment Plan Need for Continued Stay: Remain at risks for inpatient hospitalization, Severe depression anxiety, Discharge may exacerbated symptoms, Severe functional impairment Progress Toward Problem(s) and Goals/Treatment Plan: * c/w current tx and plan * c/w Ativan 2 mg q8, patient still appeared a little tremulous this morning * Awaiting medical f/u, appreciate staff notes * Vitals reviewed and noted below: Selected Entries 08/14/17 07:11 Temperature 97.8 F Pulse Rate 70 Respiratory 20 Rate Blood Pressure 112/73 * No new weekend labs thus far Estimated Date of D/C: 08/18/17
--- NOTE | 2017-08-14 09:59 | CP.PCM.CON ---
<HaBowen - Last Filed: 08/14/17 10:40> History of Present Illness - History of Present Illness History of Present Illness: 42 year old male with past medical history of COPD, Alcohol use, HTN, pancreatitis, depression presented initially to the ED for depression and was admitted to the psychiatry unit. Our team is being consulted for his medical workup. Patient says he came in because he was depressed. Patient does not have a PMD and does not take nay medications at home. He admits to drinking 1-2 pints of alcohol a day and his last drink was 2 days ago. Patient denies any chest pain, SOB, palpitations, abdominal pain, nausea, vomiting, fever, chills, or any other complaints at this time. PMH: COPD, Alcohol use, HTN, pancreatitis, depression PSH: denies Allergies: fish, shellfish Family hx: non contribuatory Medications: albuterol Social: smokes 2-3 cigarretes a day, drinks 1-2 pints of alcohol a day last drink of a pint was 2 days a go, denies any illicit drug use Review of Systems - Constitutional Constitutional: absent: Chills, Fever - Cardiovascular Cardiovascular: absent: Chest Pain, Dyspnea, Palpitations, Syncope - Respiratory Respiratory: absent: Cough, Dyspnea, Dyspnea on Exertion, Wheezing - Gastrointestinal Gastrointestinal: absent: Abdominal Pain, Nausea, Vomiting - Genitourinary Genitourinary: absent: Dysuria, Hematuria - Musculoskeletal Musculoskeletal: absent: Joint Swelling, Numbness, Stiffness, Tingling - Neurological Neurological: absent: Vertigo, Weakness Past Patient History - Infectious Disease Hx of Infectious Diseases: None - Tetanus Immunizations Tetanus Immunization: Unknown - Past Medical History & Family History Past Medical History?: Yes - Past Social History Smoking Status: Light Smoker < 10 Cigarettes Daily - CARDIAC Hx Cardiac Disorders: No Hx Hypertension: No - PULMONARY Hx Respiratory Disorders: Yes Hx Asthma: Yes Hx Chronic Obstructive Pulmonary Disease (COPD): Yes - NEUROLOGICAL HX Cerebrovascular Accident: No Hx Seizures: No - HEENT Hx HEENT Problems: Yes Other/Comment: wears glasses - RENAL Hx Chronic Kidney Disease: No - ENDOCRINE/METABOLIC Hx Endocrine Disorders: No - HEMATOLOGICAL/ONCOLOGICAL Hx Blood Disorders: No Hx Cancer: No - INTEGUMENTARY Hx Dermatological Problems: Yes Other/Comment: I&D to axillary cysts. Lipoma - MUSCULOSKELETAL/RHEUMATOLOGICAL Hx Musculoskeletal Disorders: Yes Hx Arthritis: Yes - GASTROINTESTINAL Hx Gastrointestinal Disorders: Yes Hx Pancreatitis: Yes - GENITOURINARY/GYNECOLOGICAL Hx Genitourinary Disorders: No - PSYCHIATRIC Hx Depression: Yes Hx Substance Use: No - SURGICAL HISTORY Other/Comment: had boils removed from his under arms 2010. local anesthesia - ANESTHESIA Hx Anesthesia: No Hx Anesthesia Reactions: No Hx Malignant Hyperthermia: No Meds Allergies/Adverse Reactions: Allergies Allergy/AdvReac Type Severity Reaction Status Date / Time FISH Allergy ANAPHYLAXIS Verified 08/12/17 13:09 shellfish derived Allergy ANAPHYLAXIS Verified 08/11/17 19:19 - Medications Medications: Current Medications Acetaminophen (Tylenol 325mg Tab) 650 mg PO Q6H PRN PRN Reason: Pain, moderate (4-7) Last Admin: 08/13/17 21:02 Dose: 650 mg Al Hydrox/Mg Hydrox/Simethicone (Maalox Plus 30 Ml) 30 ml PO DAILY PRN PRN Reason: Indigestion / Heartburn Citalopram Hydrobromide (Celexa) 10 mg PO DAILY [facility] Last Admin: 08/14/17 08:52 Dose: 10 mg Folic Acid (Folic Acid) 1 mg PO DAILY [facility] Last Admin: 08/14/17 08:52 Dose: 1 mg Gabapentin (Neurontin) 600 mg PO TID OMAR PRN Reason: Protocol Last Admin: 08/14/17 08:52 Dose: 600 mg Lorazepam (Ativan) 1 mg PO QID PRN; Protocol PRN Reason: alcohol withdrawals Lorazepam (Ativan) 2 mg PO Q8 OMAR PRN Reason: Protocol Last Admin: 08/14/17 06:44 Dose: 2 mg Magnesium Hydroxide (Milk Of Magnesia) 30 ml PO DAILY PRN PRN Reason: Constipation Mirtazapine (Remeron) 30 mg PO HS [facility] Last Admin: 08/13/17 21:04 Dose: 30 mg Multivitamins/Minerals (Therapeutic-M Tab) 1 tab PO DAILY [facility] Last Admin: 08/14/17 08:52 Dose: 1 tab Thiamine HCl (Vitamin B1 Tab) 100 mg PO DAILY [facility] Last Admin: 08/14/17 08:49 Dose: 100 mg Physical Exam - Constitutional Appears: Non-toxic, No Acute Distress - Head Exam Head Exam: ATRAUMATIC, NORMAL INSPECTION, NORMOCEPHALIC - Eye Exam Eye Exam: EOMI, Normal appearance, PERRL Pupil Exam: NORMAL ACCOMODATION, PERRL - ENT Exam ENT Exam: Mucous Membranes Moist, Normal Exam - Neck Exam Neck exam: Negative for: Tenderness - Respiratory Exam Respiratory Exam: Clear to Auscultation Bilateral, NORMAL BREATHING PATTERN - Cardiovascular Exam Cardiovascular Exam: REGULAR RHYTHM, +S1, +S2 - GI/Abdominal Exam GI & Abdominal Exam: Normal Bowel Sounds, Soft. absent: Tenderness - Extremities Exam Extremities exam: Positive for: pedal pulses present. Negative for: pedal edema , tenderness Additional comments: some hand trembling - Back Exam Additional comments: lipoma on upper back by cervical region - Neurological Exam Neurological exam: Alert, Oriented x3 - Psychiatric Exam Psychiatric exam: Depressed Results - Vital Signs Recent Vital Signs: Last Vital Signs Temp 97.8 F 08/14/17 07:11 Pulse 70 08/14/17 07:11 Resp 20 08/14/17 07:11 BP 112/73 08/14/17 07:11 Pulse Ox 97 08/12/17 05:43 - Labs Result Diagrams: 08/11/17 20:05 08/11/17 20:05 Assessment & Plan - Assessment and Plan (Free Text) Assessment: 42 year old male with past medical history of COPD, Alcohol use, HTN, pancreatitis, depression presented initially to the ED for depression and was admitted to the psychiatry unit. Our team is being consulted for his medical workup. Plan: 1. Depression -management as per psychiatry team 2. Alcohol Abuse -[facility] protocol -Ativan PRN -MVI -Thiamine -folate -counselled on alcohol cessation 3. COPD -breathing normally, denies any complaints -Albuterol PRN -counselled on smoking cessation 4. Abnormal EKG -EKG showed Sinus tachycardia -likely secondary to alcohol withdrawal/ anxiety -patient denies any chest pain or SOB 5. HTN-chronic -off HTN meds currently -blood pressure well controlled currently <Izabella Sotomayor - Last Filed: 08/14/17 12:07> Meds - Medications Medications: Current Medications Acetaminophen (Tylenol 325mg Tab) 650 mg PO Q6H PRN PRN Reason: Pain, moderate (4-7) Last Admin: 08/13/17 21:02 Dose: 650 mg Al Hydrox/Mg Hydrox/Simethicone (Maalox Plus 30 Ml) 30 ml PO DAILY PRN PRN Reason: Indigestion / Heartburn Albuterol/Ipratropium (Duoneb 3 Mg/0.5 Mg (3 Ml) Ud) 3 ml IH Q2H PRN PRN Reason: Shortness of Breath Citalopram Hydrobromide (Celexa) 10 mg PO DAILY [facility] Last Admin: 08/14/17 08:52 Dose: 10 mg Folic Acid (Folic Acid) 1 mg PO DAILY [facility] Last Admin: 08/14/17 08:52 Dose: 1 mg Gabapentin (Neurontin) 600 mg PO TID OMAR PRN Reason: Protocol Last Admin: 08/14/17 08:52 Dose: 600 mg Lorazepam (Ativan) 1 mg PO QID PRN; Protocol PRN Reason: alcohol withdrawals Lorazepam (Ativan) 2 mg PO Q8 [facility] PRN Reason: Protocol Last Admin: 08/14/17 06:44 Dose: 2 mg Magnesium Hydroxide (Milk Of Magnesia) 30 ml PO DAILY PRN PRN Reason: Constipation Mirtazapine (Remeron) 30 mg PO HS [facility] Last Admin: 08/13/17 21:04 Dose: 30 mg Multivitamins/Minerals (Therapeutic-M Tab) 1 tab PO DAILY [facility] Last Admin: 08/14/17 08:52 Dose: 1 tab Thiamine HCl (Vitamin B1 Tab) 100 mg PO DAILY [facility] Last Admin: 08/14/17 08:49 Dose: 100 mg Results - Vital Signs Recent Vital Signs: Last Vital Signs Temp 97.8 F 08/14/17 07:11 Pulse 70 08/14/17 07:11 Resp 20 08/14/17 07:11 BP 112/73 08/14/17 07:11 Pulse Ox 97 08/12/17 05:43 - Labs Result Diagrams: 08/11/17 20:05 08/11/17 20:05 Attending/Attestation - Attestation I have personally seen and examined this patient.: Yes I have fully participated in the care of the patient.: Yes I have reviewed all pertinent clinical information: Yes Notes (Text): 08/14/17 12:02 42 year old male with past medical history of COPD, alcohol abuse, hypertension , and depression who presented with depressed mood and anxiety. Medical consultation was requested for evaluation. Continue with management for depression / anxiety as per psychiatrist. He was counselled on smoking and alcohol abstinence. He is on multivitamin, folic acid and thiamine. He is on ativan for withdrawal symptoms. Can taper as per psychiatry. His blood pressure is controlled off medications. His EKG showed sinus tachycardia likely secondary to alcohol withdrawal / anxiety. TSH was normal. He denies any chest pain, abdominal pain or shortness of breath. Thank you Dr. Estes for allowing us to participate in the care of this patient. Please re-consult as needed. Izabella Sotomayor MD Hospitalist.
[2017-08-14] MEDS ORDERED: Albuterol-Ipratrop 3 mg / 0.5 (3 ml) UD IH PRN (10:03)
[2017-08-15] MEDS: Multivitamin With Minerals Tab PO SCH (08:45)
--- NOTE | 2017-08-15 17:39 | PCM.PYCHPN ---
Psychiatric Progress Note - Psychiatric Progress Note Patient seen today, length of contact: 25 min Patient Chief Complaint: feeling better than at admission Problems Identified/Issues Discussed: I have reviewed assessment. Patient is a 42 year old Male with history of depression and alcohol use disorder, previous psychiatric admission to [facility], recent d/c on Aug 04 2017, no prior SA who brought himself to the hospital for evaluation of depression and SI to jump in front of traffic in context of alcohol relapse s/p discharge from [facility] a week ago. I reviewed recent notes and met with patient in the dayroom He remains alert and well-oriented to month, year and circumstances. Patient is more friendly and seems to be paying a little more attention to his grooming today. Patient indicates that his depression persists however he is feeling better than at admission. Affect is constricted with subdued reactivity. Thought process is coherent and patient can express his needs well. Patient denies any new side effects, discomfort or pain. Headache is improved since yesterday. Recent staff notes indicate that patient has been visible on the unit, attending groups and social at times. Appetite is good. There were no behavioral issues over the weekend. Diagnostic Results: r/o MDD r/o substance induced mood disorder (pt said when he was sober for two months "everything was perfect") alcohol use disorder alcohol withdrawals (under control) Medication Change: Yes (decrease Ativan to 2 mg q12 on 08/15/17 ) Medical Record Reviewed: Yes Mental Status Examination - Cognitive Function Orientation: Person, Place, Situation Memory: Intact Attention: WNL Concentration: WNL Association: WNL Fund of Knowledge: WNL - Mood Mood: Depressed (feeling better than at admission), Anxious - Affect Affect: Constricted, Flat - Speech Speech: Appropriate - Formal Thought Process Formal Thought Process: No Impairment - Suicidal Ideation Suicidal Ideation: No - Homicidal Ideation Homicidal Ideation: No Goal/Treatment Plan - Goal/Treatment Plan Need for Continued Stay: Remain at risks for inpatient hospitalization, Severe depression anxiety, Discharge may exacerbated symptoms, Severe functional impairment Progress Toward Problem(s) and Goals/Treatment Plan: * c/w current tx and plan * decrease Ativan to 2 mg q12 on 08/15/17 VSS * Appreciate f/u by Dr. Sotomayor on 08/14/17~signed off * Vitals reviewed and noted below: Selected Entries 08/15/17 07:00 Temperature 97.8 F Pulse Rate 82 Respiratory 17 Rate Blood Pressure 124/90 * No new weekend labs Estimated Date of D/C: 08/18/17
[2017-08-16 07:33] VITALS: RESP 20
[2017-08-16] MEDS: Multivitamin With Minerals Tab PO SCH (08:57)
--- NOTE | 2017-08-16 15:15 | PCM.PYCHPN ---
Psychiatric Progress Note - Psychiatric Progress Note Patient seen today, length of contact: 25 min Patient Chief Complaint: "my plan is to be alcohol free" Problems Identified/Issues Discussed: Suicide/ homicide prevention, past psychiatric h/o, current psychiatric symptoms , medical problems, risk/benefits and alternatives of medications, medications compliance, coping strategies, substance abuse h/o, relapse prevention, importance of follow up with psychiatrist and therapist, discharge plan. Medical Problems: denied medical problems Diagnostic Results: 08/11/17 20:05 08/11/17 20:05 Lab Results 08/12/17 09:00: RPR Nonreactive 08/12/17 09:00: TSH 3rd Generation 1.99 08/12/17 09:00: Fasting Glucose 81, Triglycerides 50, Cholesterol 156, LDL Cholesterol Direct 79, HDL Cholesterol 55 08/12/17 05:00: Urine Color Yellow, Urine Appearance Clear, Urine pH 6.0, Ur Specific [place] >= 1.030, Urine Protein Negative, Urine Glucose (UA) Negative, Urine Ketones Trace H, Urine Blood Negative, Urine Nitrate Negative, Urine Bilirubin Negative, Urine Urobilinogen 0.2, Ur Leukocyte Esterase Negative 08/11/17 20:25: Urine Opiates Screen Negative, Urine Methadone Screen Negative, Ur Barbiturates Screen Negative, Ur Phencyclidine Scrn Negative, Ur Amphetamines Screen Negative, U Benzodiazepines Scrn Positive, U Oth Cocaine Metabols Negative, U Cannabinoids Screen Negative 08/11/17 20:05: TSH 3rd Generation 1.19, Alcohol, Quantitative 130 H 08/11/17 20:05: Sodium 148, Potassium 3.7, Chloride 103, Carbon Dioxide 25, Anion Gap 24 H, BUN 15, Creatinine 0.8, Est GFR ( Amer) > 60, Est GFR ( Non-Af Amer) > 60, Random Glucose 91, Calcium 9.8, Total Bilirubin 0.5, AST 31, ALT 43, Alkaline Phosphatase 43, Total Protein 8.1, Albumin 4.8, Globulin 3.2, Albumin/Globulin Ratio 1.5, Lipase 70 08/11/17 20:05: WBC 9.4, RBC 5.15, Hgb 16.3, Hct 46.6, MCV 90.5, MCH 31.7, MCHC 35.0, RDW 13.4, Plt Count 264, MPV 9.5, Gran % 63.8, Lymph % (Auto) 26.8, [place] % (Auto) 5.5, Eos % (Auto) 2.8, Baso % (Auto) 1.1, Gran # 6.00, Lymph # (Auto) 2.5, [place] # (Auto) 0.5, Eos # (Auto) 0.3, Baso # (Auto) 0.10 Vital Signs Temp Pulse Resp BP Pulse Ox 08/13/17 07:05 97.4 F L 71 20 105/72 08/12/17 15:46 64 96/59 L 08/12/17 07:05 97.7 F 86 20 127/90 08/12/17 05:43 80 17 102/66 97 08/12/17 04:15 90 23 104/71 96 08/12/17 00:55 68 16 125/69 100 08/11/17 22:00 98.2 F 98 H 17 110/66 97 EKG was taken at ED, had some tachycardia, not now, also prolonged QTc will call for the medical consult pt is asymptomatic. DSM 5 Symptoms Update: Shortly pt is a 42 year old Male with reported h/o alcohol use disorder, previous psychiatric admission to [facility], pt was d/c on Aug 04 2017, pt denied h/o suicidal attempts in the past, pt brought himself to the hospital for evaluation of depression, feeling of hopelessness, pt was not able to afford medications after discharge from [facility], pt relapsed on alcohol, pt reported thoughts of harming self in the ED with the plan to jump in front of the traffic, pt was not able to contract for safety, pt requires high level of care and observation and stabilization in psych inpatient unit. pt was seen and evaluated at the treatment team meeting, hygiene improving, pt c /o insomnia, asked to change his remeron to Trazodone pt had fine UE tremor, but VS are stable. pt reported being "very depressed", but more hopeful "I hope to stay alcohol free", at the same time does not want to go to the Inpatient rehab and did not want to start Naltrexone. No psychotic symptoms. As per staff pt is more visible in the unit, started to go to the groups. pt tolerates meds well, no side effects observed or reported. AIMS 0, no EPS. Impression: DSM 5 Diagnosis: r/o MDD r/o substance induced mood disorder (pt said when he was sober for two months "everything was perfect") alcohol use disorder alcohol withdrawals (under control) Medication Change: Yes (ativan decreased, trazodone started, celexa inreased) Medical Record Reviewed: Yes Consults ordered or reviewed: consult was called for abnormal EKG, pt is asymptomatic Mental Status Examination - Cognitive Function Orientation: Person, Place, Situation Memory: Intact Attention: WNL Concentration: WNL Association: WNL Fund of Knowledge: WNL - Mood Mood: Depressed (feeling better than at admission), Anxious - Affect Affect: Constricted, Flat - Speech Speech: Appropriate - Formal Thought Process Formal Thought Process: No Impairment - Suicidal Ideation Suicidal Ideation: No - Homicidal Ideation Homicidal Ideation: No Goal/Treatment Plan - Goal/Treatment Plan Need for Continued Stay: Remain at risks for inpatient hospitalization, Severe depression anxiety, Discharge may exacerbated symptoms, Severe functional impairment Progress Toward Problem(s) and Goals/Treatment Plan: Milieu/structure/supportive therapy Medical consult would be considered if needs SW consultation for discharge plan and social issues Med management multivitamins, folic acid, thiamine Celexa 15 mg daily for depression and anxiety Neurontin 300 mg 3 times a day for mood stabilization Ativan 2 mg scheduled and when necessary for alcohol withdrawals Remeron d/c trazodone 50mg po hs for insomnia naltrexone was discussed with pt monitor vital signs, seizure precaution Family involvement Follow up on labs Will monitor closely Pt was educated about risk/benefits and alternatives of medications, coping strategies (safety plan, suicide prevention), relapse prevention, importance of follow up with psychiatrist and therapist, stay away from drugs/alcohol/smoking Estimated Date of D/C: 08/19/17
[2017-08-17] MEDS: Multivitamin With Minerals Tab PO SCH (08:58)
[2017-08-17] MEDS: Sodium Chloride 0.9% 1,000 ML IV SCH (09:25)
--- NOTE | 2017-08-17 15:42 | PCM.PYCHPN ---
Psychiatric Progress Note - Psychiatric Progress Note Patient seen today, length of contact: 30min Patient Chief Complaint: "I slept well" Problems Identified/Issues Discussed: Suicide/ homicide prevention, past psychiatric h/o, current psychiatric symptoms , medical problems, risk/benefits and alternatives of medications, medications compliance, coping strategies, substance abuse h/o, relapse prevention, importance of follow up with psychiatrist and therapist, discharge plan. Medical Problems: denied medical problems Diagnostic Results: 08/11/17 20:05 08/11/17 20:05 Lab Results 08/12/17 09:00: RPR Nonreactive 08/12/17 09:00: TSH 3rd Generation 1.99 08/12/17 09:00: Fasting Glucose 81, Triglycerides 50, Cholesterol 156, LDL Cholesterol Direct 79, HDL Cholesterol 55 08/12/17 05:00: Urine Color Yellow, Urine Appearance Clear, Urine pH 6.0, Ur Specific [place] >= 1.030, Urine Protein Negative, Urine Glucose (UA) Negative, Urine Ketones Trace H, Urine Blood Negative, Urine Nitrate Negative, Urine Bilirubin Negative, Urine Urobilinogen 0.2, Ur Leukocyte Esterase Negative 08/11/17 20:25: Urine Opiates Screen Negative, Urine Methadone Screen Negative, Ur Barbiturates Screen Negative, Ur Phencyclidine Scrn Negative, Ur Amphetamines Screen Negative, U Benzodiazepines Scrn Positive, U Oth Cocaine Metabols Negative, U Cannabinoids Screen Negative 08/11/17 20:05: TSH 3rd Generation 1.19, Alcohol, Quantitative 130 H 08/11/17 20:05: Sodium 148, Potassium 3.7, Chloride 103, Carbon Dioxide 25, Anion Gap 24 H, BUN 15, Creatinine 0.8, Est GFR ( Amer) > 60, Est GFR ( Non-Af Amer) > 60, Random Glucose 91, Calcium 9.8, Total Bilirubin 0.5, AST 31, ALT 43, Alkaline Phosphatase 43, Total Protein 8.1, Albumin 4.8, Globulin 3.2, Albumin/Globulin Ratio 1.5, Lipase 70 08/11/17 20:05: WBC 9.4, RBC 5.15, Hgb 16.3, Hct 46.6, MCV 90.5, MCH 31.7, MCHC 35.0, RDW 13.4, Plt Count 264, MPV 9.5, Gran % 63.8, Lymph % (Auto) 26.8, [place] % (Auto) 5.5, Eos % (Auto) 2.8, Baso % (Auto) 1.1, Gran # 6.00, Lymph # (Auto) 2.5, [place] # (Auto) 0.5, Eos # (Auto) 0.3, Baso # (Auto) 0.10 Vital Signs Temp Pulse Resp BP Pulse Ox 08/13/17 07:05 97.4 F L 71 20 105/72 08/12/17 15:46 64 96/59 L 08/12/17 07:05 97.7 F 86 20 127/90 08/12/17 05:43 80 17 102/66 97 08/12/17 04:15 90 23 104/71 96 08/12/17 00:55 68 16 125/69 100 08/11/17 22:00 98.2 F 98 H 17 110/66 97 EKG was taken at ED, had some tachycardia, not now, also prolonged QTc will call for the medical consult pt is asymptomatic. DSM 5 Symptoms Update: Shortly pt is a 42 year old Male with reported h/o alcohol use disorder, previous psychiatric admission to [facility], pt was d/c on Aug 04 2017, pt denied h/o suicidal attempts in the past, pt brought himself to the hospital for evaluation of depression, feeling of hopelessness, pt was not able to afford medications after discharge from [facility], pt relapsed on alcohol, pt reported thoughts of harming self in the ED with the plan to jump in front of the traffic, pt was not able to contract for safety, pt requires high level of care and observation and stabilization in psych inpatient unit. pt was seen and evaluated next to the nursing station, hygiene improving, pt said insomnia is getting better after Trazodone was started. pt had fine UE tremor, but VS are stable. pt reported being "less depressed", but more hopeful "I hope to stay alcohol free", at the same time does not want to go to the Inpatient rehab and did not want to start Naltrexone. No psychotic symptoms. As per staff pt is more visible in the unit, started to go to the groups. pt tolerates meds well, no side effects observed or reported. AIMS 0, no EPS. Impression: DSM 5 Diagnosis: r/o MDD r/o substance induced mood disorder (pt said when he was sober for two months "everything was perfect") alcohol use disorder alcohol withdrawals (under control) Medication Change: Yes (ativan decreased, trazodone started, celexa inreased) Medical Record Reviewed: Yes Mental Status Examination - Cognitive Function Orientation: Person, Place, Situation Memory: Intact Attention: WNL Concentration: WNL Association: WNL Fund of Knowledge: WNL - Mood Mood: Depressed (feeling better than at admission), Anxious - Affect Affect: Constricted, Flat - Speech Speech: Appropriate - Formal Thought Process Formal Thought Process: No Impairment - Suicidal Ideation Suicidal Ideation: No - Homicidal Ideation Homicidal Ideation: No Goal/Treatment Plan - Goal/Treatment Plan Need for Continued Stay: Remain at risks for inpatient hospitalization, Severe depression anxiety, Discharge may exacerbated symptoms, Severe functional impairment Progress Toward Problem(s) and Goals/Treatment Plan: Milieu/structure/supportive therapy Medical consult would be considered if needs SW consultation for discharge plan and social issues Med management multivitamins, folic acid, thiamine Celexa 15 mg daily for depression and anxiety Neurontin 300 mg 3 times a day for mood stabilization Ativan was d/c Remeron d/c trazodone 50mg po hs for insomnia naltrexone was discussed with pt monitor vital signs, seizure precaution Family involvement Follow up on labs Will monitor closely Pt was educated about risk/benefits and alternatives of medications, coping strategies (safety plan, suicide prevention), relapse prevention, importance of follow up with psychiatrist and therapist, stay away from drugs/alcohol/smoking Estimated Date of D/C: 08/19/17
[2017-08-18 07:10] VITALS: TEMP 97.6
[2017-08-18] MEDS: Multivitamin With Minerals Tab PO SCH (08:49)
--- NOTE | 2017-08-18 16:05 | PCM.PYCHPN ---
Psychiatric Progress Note - Psychiatric Progress Note Patient seen today, length of contact: 30min Patient Chief Complaint: "I slept well, I am ready to go tomorrow" Problems Identified/Issues Discussed: Suicide/ homicide prevention, past psychiatric h/o, current psychiatric symptoms , medical problems, risk/benefits and alternatives of medications, medications compliance, coping strategies, substance abuse h/o, relapse prevention, importance of follow up with psychiatrist and therapist, discharge plan. Medical Problems: denied medical problems Diagnostic Results: 08/11/17 20:05 08/11/17 20:05 Lab Results 08/12/17 09:00: RPR Nonreactive 08/12/17 09:00: TSH 3rd Generation 1.99 08/12/17 09:00: Fasting Glucose 81, Triglycerides 50, Cholesterol 156, LDL Cholesterol Direct 79, HDL Cholesterol 55 08/12/17 05:00: Urine Color Yellow, Urine Appearance Clear, Urine pH 6.0, Ur Specific [place] >= 1.030, Urine Protein Negative, Urine Glucose (UA) Negative, Urine Ketones Trace H, Urine Blood Negative, Urine Nitrate Negative, Urine Bilirubin Negative, Urine Urobilinogen 0.2, Ur Leukocyte Esterase Negative 08/11/17 20:25: Urine Opiates Screen Negative, Urine Methadone Screen Negative, Ur Barbiturates Screen Negative, Ur Phencyclidine Scrn Negative, Ur Amphetamines Screen Negative, U Benzodiazepines Scrn Positive, U Oth Cocaine Metabols Negative, U Cannabinoids Screen Negative 08/11/17 20:05: TSH 3rd Generation 1.19, Alcohol, Quantitative 130 H 08/11/17 20:05: Sodium 148, Potassium 3.7, Chloride 103, Carbon Dioxide 25, Anion Gap 24 H, BUN 15, Creatinine 0.8, Est GFR ( Amer) > 60, Est GFR ( Non-Af Amer) > 60, Random Glucose 91, Calcium 9.8, Total Bilirubin 0.5, AST 31, ALT 43, Alkaline Phosphatase 43, Total Protein 8.1, Albumin 4.8, Globulin 3.2, Albumin/Globulin Ratio 1.5, Lipase 70 08/11/17 20:05: WBC 9.4, RBC 5.15, Hgb 16.3, Hct 46.6, MCV 90.5, MCH 31.7, MCHC 35.0, RDW 13.4, Plt Count 264, MPV 9.5, Gran % 63.8, Lymph % (Auto) 26.8, [place] % (Auto) 5.5, Eos % (Auto) 2.8, Baso % (Auto) 1.1, Gran # 6.00, Lymph # (Auto) 2.5, [place] # (Auto) 0.5, Eos # (Auto) 0.3, Baso # (Auto) 0.10 Vital Signs Temp Pulse Resp BP Pulse Ox 08/13/17 07:05 97.4 F L 71 20 105/72 08/12/17 15:46 64 96/59 L 08/12/17 07:05 97.7 F 86 20 127/90 08/12/17 05:43 80 17 102/66 97 08/12/17 04:15 90 23 104/71 96 08/12/17 00:55 68 16 125/69 100 08/11/17 22:00 98.2 F 98 H 17 110/66 97 EKG was taken at ED, had some tachycardia, not now, also prolonged QTc will call for the medical consult pt is asymptomatic. Temp Pulse Resp BP Pulse Ox 97.6 F 76 20 115/75 97 08/18/17 07:09 08/18/17 07:09 08/18/17 07:09 08/18/17 07:09 08/12/17 05:43 DSM 5 Symptoms Update: Shortly pt is a 42 year old Male with reported h/o alcohol use disorder, previous psychiatric admission to [facility], pt was d/c on Aug 04 2017, pt denied h/o suicidal attempts in the past, pt brought himself to the hospital for evaluation of depression, feeling of hopelessness, pt was not able to afford medications after discharge from [facility], pt relapsed on alcohol, pt reported thoughts of harming self in the ED with the plan to jump in front of the traffic, pt was not able to contract for safety, pt requires high level of care and observation and stabilization in psych inpatient unit. pt was seen and evaluated next to the nursing station, hygiene improving, pt said insomnia is getting better after Trazodone was started. pt had fine UE tremor, but VS are stable. pt reported being "less depressed", but more hopeful "I hope to stay alcohol free", at the same time does not want to go to the Inpatient rehab and did not want to start Naltrexone. No psychotic symptoms. As per staff pt is more visible in the unit, started to go to the groups. pt tolerates meds well, no side effects observed or reported. AIMS 0, no EPS. Impression: DSM 5 Diagnosis: r/o MDD r/o substance induced mood disorder (pt said when he was sober for two months "everything was perfect") alcohol use disorder alcohol withdrawals (under control) Medication Change: Yes (celexa increased) Medical Record Reviewed: Yes Consults ordered or reviewed: consult was called for abnormal EKG, pt is asymptomatic Mental Status Examination - Cognitive Function Orientation: Person, Place, Situation Memory: Intact Attention: WNL Concentration: WNL Association: WN Fund of Knowledge: WN - Mood Mood: Depressed ("I feel better") - Affect Affect: Constricted, Flat - Speech Speech: Appropriate - Formal Thought Process Formal Thought Process: No Impairment - Suicidal Ideation Suicidal Ideation: No - Homicidal Ideation Homicidal Ideation: No Goal/Treatment Plan - Goal/Treatment Plan Need for Continued Stay: Remain at risks for inpatient hospitalization, Severe depression anxiety, Discharge may exacerbated symptoms, Severe functional impairment Progress Toward Problem(s) and Goals/Treatment Plan: Milieu/structure/supportive therapy Medical consult would be considered if needs SW consultation for discharge plan and social issues Med management multivitamins, folic acid, thiamine Celexa 20 mg daily for depression and anxiety Neurontin 300 mg 3 times a day for mood stabilization Ativan was d/c Remeron d/c trazodone 50mg po hs for insomnia naltrexone was discussed with pt monitor vital signs, seizure precaution Family involvement Follow up on labs Will monitor closely Pt was educated about risk/benefits and alternatives of medications, coping strategies (safety plan, suicide prevention), relapse prevention, importance of follow up with psychiatrist and therapist, stay away from drugs/alcohol/smoking Estimated Date of D/C: 08/19/17
[2017-08-19 07:19] VITALS: BP 115/76; PULSE 74
[2017-08-19] MEDS: Multivitamin With Minerals Tab PO SCH (08:31)
--- NOTE | 2017-08-19 16:55 | PCM.PYCHDC ---
Mental Status Examination - Mental Status Examination Orientation: Person, Place, Situation, Time Memory: Intact Mood: Neutral Affect: Broad (and mood congruent) Speech: Appropriate Attention: WNL Concentration: WNL Association: WNL Fund of Knowledge: WNL Formal Thought Process: No Impairment Description of patient's judgement and insight: Pt has improved insight into mental and medical illness, pt was compliant with medications and unit rules and regulations, pt was going to groups, was calm, cooperative, socially appropriate, no behavioral incidents, no agitation, no aggression. Psychotic Thoughts and Behaviors: Pt denied v/a/t hallucinations, denied paranoid ideations, pt does not appear to be psychotic, and thought process is goal directed. Suicidal Ideation: No Current Homicidal Ideation?: No Plan: pt adamantly denied thoughts of harming self or others denied intent or plan. Discharge Summary - Discharge Note Reason for Hospitalization: pt was admitted for evaluation of depression/hopelessness/passive wish to be , inability to function. Psychiatric History (includes Medical, Family, Personal Hx): see HPI Laboratory Data: 08/11/17 20:05 08/11/17 20:05 Lab Results 08/12/17 09:00: RPR Nonreactive 08/12/17 09:00: TSH 3rd Generation 1.99 08/12/17 09:00: Fasting Glucose 81, Triglycerides 50, Cholesterol 156, LDL Cholesterol Direct 79, HDL Cholesterol 55 08/12/17 05:00: Urine Color Yellow, Urine Appearance Clear, Urine pH 6.0, Ur Specific [place] >= 1.030, Urine Protein Negative, Urine Glucose (UA) Negative, Urine Ketones Trace H, Urine Blood Negative, Urine Nitrate Negative, Urine Bilirubin Negative, Urine Urobilinogen 0.2, Ur Leukocyte Esterase Negative 08/11/17 20:25: Urine Opiates Screen Negative, Urine Methadone Screen Negative, Ur Barbiturates Screen Negative, Ur Phencyclidine Scrn Negative, Ur Amphetamines Screen Negative, U Benzodiazepines Scrn Positive, U Oth Cocaine Metabols Negative, U Cannabinoids Screen Negative 08/11/17 20:05: TSH 3rd Generation 1.19, Alcohol, Quantitative 130 H 08/11/17 20:05: Sodium 148, Potassium 3.7, Chloride 103, Carbon Dioxide 25, Anion Gap 24 H, BUN 15, Creatinine 0.8, Est GFR ( Amer) > 60, Est GFR ( Non-Af Amer) > 60, Random Glucose 91, Calcium 9.8, Total Bilirubin 0.5, AST 31, ALT 43, Alkaline Phosphatase 43, Total Protein 8.1, Albumin 4.8, Globulin 3.2, Albumin/Globulin Ratio 1.5, Lipase 70 08/11/17 20:05: WBC 9.4, RBC 5.15, Hgb 16.3, Hct 46.6, MCV 90.5, MCH 31.7, MCHC 35.0, RDW 13.4, Plt Count 264, MPV 9.5, Gran % 63.8, Lymph % (Auto) 26.8, Clay % (Auto) 5.5, Eos % (Auto) 2.8, Baso % (Auto) 1.1, Gran # 6.00, Lymph # (Auto) 2.5, Clay # (Auto) 0.5, Eos # (Auto) 0.3, Baso # (Auto) 0.10 Vital Signs Temp Pulse Resp BP Pulse Ox 08/19/17 07:19 97.6 F 74 20 115/76 08/18/17 16:00 78 116/78 08/18/17 07:09 97.6 F 76 20 115/75 08/17/17 16:00 74 127/88 08/17/17 06:34 97.7 F 72 20 104/66 08/16/17 16:29 90 131/87 08/16/17 07:32 97.5 F L 76 20 115/77 08/15/17 17:48 67 100/60 08/15/17 07:00 97.8 F 82 17 124/90 08/14/17 16:11 68 120/70 08/14/17 07:11 97.8 F 70 20 112/73 08/13/17 16:00 92 H 112/72 08/13/17 07:05 97.4 F L 71 20 105/72 08/12/17 15:46 64 96/59 L 08/12/17 07:05 97.7 F 86 20 127/90 08/12/17 05:43 80 17 102/66 97 08/12/17 04:15 90 23 104/71 96 08/12/17 00:55 68 16 125/69 100 08/11/17 22:00 98.2 F 98 H 17 110/66 97 Consultations:: List each consultation separately and include: 1. Reason for request. 2. Findings. 3. Follow-up Consultations: consult was called for abnormal EKG, pt is asymptomatic please see notes for more detailed information Summary of Hospital Course include:: 1. Description of specific treatment plan utilized for patients during their course of treatmen. 2. Summarize the time- course for resolution of acute symptoms and/or regressed behaviors. 3. Describe issues identified and worked on during hospitalization. 4. Describe medication utilized. 5. Describe medical problems identified and treated. 6. Reassessment of suicide risk Summary of Hospital Course: Shortly pt is a 42 year old Male with reported h/o alcohol use disorder, previous psychiatric admission to [facility] ([facility] pt was d/c on Aug 04 2017, pt denied h/o suicidal attempts in the past, pt brought himself to the hospital for evaluation of depression, feeling of hopelessness, pt was not able to afford medications after discharge from [facility] ([facility]), pt relapsed on alcohol, pt reported thoughts of harming self in the ED with the plan to jump in front of the traffic, pt was not able to contract for safety, pt requires high level of care and observation and stabilization in psych inpatient unit. initially pt was seen and evaluated in his room with the medical student, pt presented with poor personal hygiene, has UE shakes, BP wnl, pt reported that he feels very anxious and he is withdrawing from alcohol, pt's last drink was yesterday, pt reported drinking about 2pints of vodka daily. Pt reported that he had h/o hallucinations and withdrawal seizures in the past when he was withdrawing. pt was educated about medications, ativan was started scheduled and PRN, pt reported good response from ativan in the past. pt denied any other drug use, smokes about 6cigarettes a day, counseling provided, pt refused nicotine patch. pt reported since the time of discharge from the [facility] he was not able to afford medications which pt found to be helpful, pt said he relapsed on alcohol, as a result pt became depressed, hopeless, yesterday as per pt he started to have thoughts of jumping in front of the traffic, initially pt "I was scared to come to the hospital because I knew everyone would be mad at me", but decided to look for help in anyway. in ED pt reported to hear command type hallucinations, but not during the interview,pt does not appeared to be psychotic. no manic episodes in the past. tx goals: "I would consider to go to rehab, but it is not define yet". pt adamantly denied h/o abuse/physical/emotional/sexual. Past psych h/o: multiple psych admissions, denied suicidal attempts, 2detoxes, most recent was last year, longest sobriety 2months after the detox. stress: mother has stage 4cancer. Medical h/o: pt reported being healthy. Family h/o: denied mental illness in the family. d/c summary reviewed, pt was d/c from the [facility] ([facility]) with the following meds: Gabapentin [Neurontin] 300 mg PO TID #45 cap Mirtazapine [Remeron] 30 mg PO HS #14 tab Propranolol [Inderal] 20 mg PO TID #45 tab traZODone [Desyrel] 50 mg PO HS PRN #14 tab pt was willing to resume meds, pt said "it was helpful", pt was educated about naltrexone, pt wants to think about it. 08/11/17 20:05 08/11/17 20:05 Lab Results 08/12/17 09:00: TSH 3rd Generation 1.99 08/12/17 09:00: Fasting Glucose 81, Triglycerides 50, Cholesterol 156, LDL Cholesterol Direct 79, HDL Cholesterol 55 08/12/17 05:00: Urine Color Yellow, Urine Appearance Clear, Urine pH 6.0, Ur Specific [place] >= 1.030, Urine Protein Negative, Urine Glucose (UA) Negative, Urine Ketones Trace H, Urine Blood Negative, Urine Nitrate Negative, Urine Bilirubin Negative, Urine Urobilinogen 0.2, Ur Leukocyte Esterase Negative 08/11/17 20:25: Urine Opiates Screen Negative, Urine Methadone Screen Negative, Ur Barbiturates Screen Negative, Ur Phencyclidine Scrn Negative, Ur Amphetamines Screen Negative, U Benzodiazepines Scrn Positive, U Oth Cocaine Metabols Negative, U Cannabinoids Screen Negative 08/11/17 20:05: TSH 3rd Generation 1.19, Alcohol, Quantitative 130 H 08/11/17 20:05: Sodium 148, Potassium 3.7, Chloride 103, Carbon Dioxide 25, Anion Gap 24 H, BUN 15, Creatinine 0.8, Est GFR ( Amer) > 60, Est GFR ( Non-Af Amer) > 60, Random Glucose 91, Calcium 9.8, Total Bilirubin 0.5, AST 31, ALT 43, Alkaline Phosphatase 43, Total Protein 8.1, Albumin 4.8, Globulin 3.2, Albumin/Globulin Ratio 1.5, Lipase 70 08/11/17 20:05: WBC 9.4, RBC 5.15, Hgb 16.3, Hct 46.6, MCV 90.5, MCH 31.7, MCHC 35.0, RDW 13.4, Plt Count 264, MPV 9.5, Gran % 63.8, Lymph % (Auto) 26.8, Clay % (Auto) 5.5, Eos % (Auto) 2.8, Baso % (Auto) 1.1, Gran # 6.00, Lymph # (Auto) 2.5, Clay # (Auto) 0.5, Eos # (Auto) 0.3, Baso # (Auto) 0.10 Vital Signs Temp Pulse Resp BP Pulse Ox 08/12/17 07:05 97.7 F 86 20 127/90 08/12/17 05:43 80 17 102/66 97 08/12/17 04:15 90 23 104/71 96 08/12/17 00:55 68 16 125/69 100 08/11/17 22:00 98.2 F 98 H 17 110/66 97 pt was stabilized on the following medications: Celexa 20 mg daily for depression and anxiety Neurontin 300 mg 3 times a day for mood stabilization Ativan was weaned off Remeron d/c trazodone 50mg po hs for insomnia naltresone was discussed with pt, pt express no interest to start on this medication. pt tolerated meds well, no side effects observed or reported, AIMS 0, no EPS. Over the course of this hospitalization pt was attending groups, pt also had medication management, had therapeutic milieu. Overall pt improved significantly, pt's affect became brighter, pt was less depressed, has realistic future oriented plans, pt also does not appear to be psychotic, or anxious, pt was socially appropriate, no behavioral issues, pts insight improved as well and soon pt deemed to be ready for discharge. At the time of the discharge pt denied been depressed, denied thoughts of harming self or others, denied psychotic symptoms, and pt does not appeared to be psychotic, denied been anxious, pt is not in imminent danger to self or others, will be following up at [facility], information about follow up appointment, time and address provided to the pt, it is patient responsibility to follow up with outpatient clinic, PMD as well as specialists ( see note for more detailed information). In case pt will need to obtain results of studies pending at discharge pt was provided with contact information of Psychiatric Inpatient unit [phone] as well as Medical Record Department [phone]. Nicotine patch was offered, but pt refused Naltrexone treatment offered, but pt refused Counseling about smoking and alcohol cessation provided AA meetings as well as smoking cessation treatment program information was provided by the pt was provided with prescriptions for all of medications (please see medication reconciliation form) Pt was educated about safety plan in case of worsening of symptoms or in case of suicidal or homicidal ideation call 911 or go to the nearest ER, also was educated to take meds as prescribed and stay away from drugs, pt verbalized understanding. - Diagnosis (1) Depressive disorder Status: Chronic Priority: Medium (2) Alcohol use disorder Status: Chronic Priority: High - Final Diagnosis (DSM 5) Condition upon Discharge: GUARDED Disposition: HOME/ ROUTINE Follow-up Treatment Plan: At the time of the discharge pt denied been depressed, denied thoughts of harming self or others, denied psychotic symptoms, and pt does not appeared to be psychotic, denied been anxious, pt is not in imminent danger to self or others, will be following up at [facility], information about follow up appointment, time and address provided to the pt, it is patient responsibility to follow up with outpatient clinic, PMD as well as specialists ( see note for more detailed information). In case pt will need to obtain results of studies pending at discharge pt was provided with contact information of Psychiatric Inpatient unit [phone] as well as Medical Record Department [phone]. Nicotine patch was offered, but pt refused Naltrexone treatment offered, but pt refused Counseling about smoking and alcohol cessation provided AA meetings as well as smoking cessation treatment program information was provided by the pt was provided with prescriptions for all of medications (please see medication reconciliation form) Pt was educated about safety plan in case of worsening of symptoms or in case of suicidal or homicidal ideation call 911 or go to the nearest ER, also was educated to take meds as prescribed and stay away from drugs, pt verbalized understanding. Prescriptions/Medication Reconciliation: Citalopram [celeXA] 20 mg PO DAILY #14 tab Folic Acid 1 mg PO DAILY #14 tab Gabapentin [Neurontin] 600 mg PO TID #21 tab Multimineral/Multivitamin [Therapeutic-M Tab] 1 tab PO DAILY #14 tab Thiamine [Vitamin B1 Tab] 100 mg PO DAILY #14 tab traZODone [Desyrel] 50 mg PO HS #14 tab - Smoking Cessation Smoking Cessation Medication prescribed: No Reason for not providing: pt refused
== END 2017-08-19 16:02 | disposition home or self-care (01) | DRG 885 ==
LOC: ED 19:02 → PSYC 08-12 05:57
PROVIDERS: ADMIT Psychologist; ATTEND Psychiatry & Neurology Psychiatry
DX: F32.89 Other specified depressive episodes (principal); F10.239 Alcohol dependence with withdrawal, unspecified; R45.851 Suicidal ideations; F20.9 Schizophrenia, unspecified; F31.9 Bipolar disorder, unspecified; F41.9 Anxiety disorder, unspecified; G47.00 Insomnia, unspecified; I10 Essential (primary) hypertension; J44.9 Chronic obstructive pulmonary disease, unspecified; Z59.0 Homelessness; Z79.899 Other long term (current) drug therapy; F17.210 Nicotine dependence, cigarettes, uncomplicated; Z87.892 Personal history of anaphylaxis; Z91.013 Allergy to seafood; R40.2412 Glasgow coma scale score 13-15, at arrival to emergency department; Z87.19 Personal history of other diseases of the digestive system; R00.0 Tachycardia, unspecified